=== PATIENT | male | born 1945 | race Caucasian/White ===

== ENCOUNTER 2020-01-21 10:30 | Day surgery (SDC) | payer MEDICARE ==
[2020-01-21] MEDS ORDERED: LIDOCAINE 2% 100MG/5ML SDV (FOR ANES.) As Ordered ONE (10:52)
[2020-01-21] MEDS ORDERED: propofoL 200 MG/20 ML VIAL As Ordered ONE (10:53)
--- NOTE | 2020-02-23 11:28 | ROOR ---
Patient Name: Isaiah Castillo Procedure Date: 01/21/2020 10:42 AM Date of : 1945 Age: 74 Room: [facility] Gender: Male Note Status: Cash Applications Associate Override Procedure: Colonoscopy Indications: Screening for colorectal malignant neoplasm Providers: Oliver NOWAK MD Referring MD: Dieter Rubio MD Requesting Provider: Medicines: Monitored Anesthesia Care Complications: No immediate complications. Procedure: Pre-Anesthesia Assessment: - The heart rate, respiratory rate, oxygen saturations, blood pressure, adequacy of pulmonary ventilation, and response to care were monitored throughout the procedure. The Colonoscope was introduced through the anus and advanced to the cecum, identified by appendiceal orifice and ileocecal valve. The colonoscopy was performed without difficulty. The patient tolerated the procedure well. The quality of the bowel preparation was good. Findings: The perianal and digital rectal examinations were normal. Two sessile polyps were found in the cecum. The polyps were 4 to 5 mm in size. These polyps were removed with a cold snare. Resection and retrieval were complete. Multiple small and large-mouthed diverticula were found in the entire colon and left colon. Small Internal Hemorrhoids. Impression: - Two 4 to 5 mm polyps in the cecum, removed with a cold snare. Resected and retrieved. - Diverticulosis in the entire examined colon and in the left colon. - Small Internal Hemorrhoids. - The examination was otherwise normal on direct and retroflexion views. Recommendation: - Repeat colonoscopy in 5 years for surveillance. Oliver Nowak MD Oliver NOWAK MD 01/21/2020 11:56:55 AM Electronically signed by Oliver NOWAK MD Number of Addenda: 0 Note Initiated On: 01/21/2020 10:42 AM Estimated Blood Loss: Estimated blood loss: none.
== END 2020-01-21 12:45 | disposition home or self-care (01) ==
LOC: M SDC 10:30
PROVIDERS: ATTEND Internal Medicine Gastroenterology
DX: Z12.11 Encounter for screening for malignant neoplasm of colon (principal); K63.5 Polyp of colon; K57.30 Diverticulosis of large intestine without perforation or abscess without bleeding; K64.8 Other hemorrhoids; Z79.82 Long term (current) use of aspirin; Z88.0 Allergy status to penicillin

== ENCOUNTER → 2022-06-19 | Outpatient (CLI) | payer MEDICARE ==
[2022-06-19 18:43] LABS: BASO # 0.1 10^3/uL (0.0-0.2); BASO % 1.2 % (0.0-1.0); EOS # 0.3 10^3/uL (0.0-0.5); EOS % 4.4 % (0.0-3.0); HEMATOCRIT 43.7 % (42.0-52.0); HEMOGLOBIN 14.3 g/dl (13.5-17.5); LYMPH # 1.8 10^3/uL (1.5-5.0); LYMPH % 30.6 % (24.0-44.0); MEAN CORPUSCULAR HEMOGLOBIN 32.1 pg (27.0-33.0); MEAN CORPUSCULAR HGB CONC 32.7 g/dl (32.0-36.5); MONO # 0.7 10^3/uL (0.0-0.8); MONO % 12.1 % (2.0-8.0); NEUTROPHILS % 51.4 % (36.0-66.0); PLATELET COUNT, AUTOMATED 291 10^3/uL (150-450); RED BLOOD COUNT 4.46 10^6/uL (4.30-6.10); WHITE BLOOD COUNT 5.9 10^3/uL (4.0-10.0)
[2022-06-19 19:02] LABS: ERYTHROCYTE SEDIMENTATION RATE 3 mm/hr (0-20)
[2022-06-19 19:03] LABS: ALBUMIN 3.8 G/DL (3.2-5.2); ALKALINE PHOSPHATASE 81 U/L (46-116); ALT/SGPT 23 U/L (7.0-40); AST/SGOT 28 U/L (<34); BILIRUBIN,TOTAL 0.3 MG/DL (0.3-1.2); BLOOD UREA NITROGEN 23 MG/DL (9-23); CARBON DIOXIDE LEVEL 31 MMOL/L (20-31); CHLORIDE LEVEL 102 MMOL/L (98-107); CREATININE FOR GFR 0.85 MG/DL (0.70-1.30); FOLATE 20.2 NG/ML (>5.4); FREE THYROXINE INDEX 1.9 % (1.4-3.8); GLOMERULAR FILTRATION RATE > 60.0 (>42); GLUCOSE, FASTING 99 MG/DL (74-106); POTASSIUM SERUM 4.6 MMOL/L (3.5-5.1); SODIUM LEVEL 138 MMOL/L (136-145); T UPTAKE 30.4 % (22.5-37.0); THYROID STIMULATING HORMONE 1.007 uIU/ML (0.55-4.78); THYROXINE (T4) 6.4 UG/DL (4.5-10.9); TOTAL PROTEIN 6.9 G/DL (5.7-8.2); VITAMIN B12 LEVEL 296 PG/ML (211-911)
[2022-06-19 19:27] LABS: HEMOGLOBIN A1c 5.1 % (4.0-6.0)
[2022-06-25 23:07] LABS: ANTINUCLEAR ANTIBODIES DIRECT Negative (Negative); VITAMIN B1 LEVEL WHOLE BLOOD 157.3 nmol/L (66.5-200.0); VITAMIN B6,PYRIDOXAL PHOSPHATE 9.5 ug/L (3.4-65.2); VITAMIN E(GAMMA TOCOPHEROL) 2.4 mg/L (0.5-4.9)
== END ==
LOC: M PLALAB 15:35
PROVIDERS: ATTEND Psychiatry & Neurology Neurology
DX: E07.9 Disorder of thyroid, unspecified (principal); E53.8 Deficiency of other specified B group vitamins; Z11.3 Encounter for screening for infections with a predominantly sexual mode of transmission; Z79.899 Other long term (current) drug therapy